=== PATIENT | female | born 1985 | race Caucasian/White ===

== ENCOUNTER 2019-07-17 06:34 | Day surgery (SDC) | payer MEDICAID ==
[2019-07-15 17:26] LABS: BASOPHILS % (AUTO) 0.4 % (0.0-2.0); EOSINOPHILS # (AUTO) 0.2 K/uL (0-0.4); EOSINOPHILS % (AUTO) 2.1 % (0.0-4.0); HEMATOCRIT 40.1 % (36-48); HEMOGLOBIN 13.5 g/dL (12.0-16.0); LYMPHOCYTES # (AUTO) 3.1 K/uL (2.5-16.5); LYMPHOCYTES % (AUTO) 40.7 % (20.5-51.1); MEAN CORPUSCULAR HEMOGLOBIN 30 pg (27-31); MEAN CORPUSCULAR HGB CONC 34 g/dL (33-37); MEAN CORPUSCULAR VOLUME 88.3 fL (80-94); MONOCYTES # (AUTO) 0.6 K/uL (0.8-1.0); MONOCYTES % (AUTO) 7.9 % (1.7-9.3); NEUTROPHILS # (AUTO) 3.7 K/uL (1.8-7.7); NEUTROPHILS % (AUTO) 48.9 % (42.2-75.2); PLATELET COUNT (AUTO) 348 K/uL (140-450); RED BLOOD CELL COUNT(AUTO) 4.54 MIL/uL (4.20-5.40); RED CELL DISTRIBUTION WIDTH 12.5 % (11.6-13.7); WHITE BLOOD COUNT (AUTO) 7.5 K/uL (4.8-10.8)
[2019-07-15 17:27] LABS: ALBUMIN 3.6 g/dL (3.4-5.0); ANION GAP 11.1 (8-16); CARBON DIOXIDE 29.6 mmol/L (21-32); CREATININE 0.6 mg/dL (0.6-1.3); POTASSIUM 3.7 mmol/L (3.5-5.1); TOTAL BILIRUBIN 0.2 mg/dL (0.0-1.0)
[~2019-07-17] VITALS: Ht 152.4 cm; Wt 90.7 kg
[2019-07-17] MEDS ORDERED: BUPIVACAINE-MPF 0.25% 30 ML VIAL INJ ONE (08:09)
[2019-07-17] MEDS ORDERED: ROCURONIUM 50 MG/5 ML VIAL IV ONE (08:26)
[2019-07-17] MEDS ORDERED: PROPOFOL 200 MG/20 ML VIAL IV ONE (08:26)
[2019-07-17] MEDS ORDERED: DEXAMETHASONE 4 MG/ML VIAL ONE (08:26)
[2019-07-17] MEDS ORDERED: GLYCOPYRROLATE 0.2 MG/ML VIAL ONE (08:26)
[2019-07-17] MEDS ORDERED: SEVOFLURANE 250 ML BTL INH ONE (08:26)
[2019-07-17] MEDS ORDERED: ONDANSETRON 4 MG/2 ML VIAL ONE (08:26)
[2019-07-17] MEDS ORDERED: fentaNYL 0.05 MG/ML VIAL ONE (08:26)
[2019-07-17] MEDS ORDERED: METOCLOPRAMIDE 10 MG/2 ML INJ VIAL ONE (08:26)
[2019-07-17] MEDS ORDERED: ONDANSETRON 4 MG/2 ML VIAL IVP PRN (09:30)
[2019-07-17] MEDS ORDERED: HYDROmorphone 1 MG/ML AMP IVP PRN (09:30)
[2019-07-17] MEDS ORDERED: HYDROmorphone PFS 2 MG/ML SYR ONE (09:48)
== END 2019-07-17 11:10 | disposition home or self-care (01) ==
LOC: MDS 06:34 → MMU 06:34 → MDS 11:10
PROVIDERS: ATTEND Obstetrics & Gynecology
DX: Z30.2 Encounter for sterilization (principal); E66.01 Morbid (severe) obesity due to excess calories; Z98.51 Tubal ligation status; Z68.39 Body mass index [BMI] 39.0-39.9, adult
CPT/HCPCS: 36415; 58670; 80053; 81025; 84703; 85025; J1100; J1170; J2405; J2704; J2765; J3010; J3490; J7120